=== PATIENT | female | born 1945 ===

== ENCOUNTER 2019-04-05 05:41 | Outpatient (CLI) | payer MEDICARE ==
[~2019-04-05] VITALS: Ht 157 cm; Wt 102.0 kg
[2019-04-05] MEDS ORDERED: ASPI-586 PO (10:15)
[2019-04-05] MEDS ORDERED: ALPR0.5T7 PO (10:15)
[2019-04-05] MEDS ORDERED: METF-399 PO (10:15)
[2019-04-05] MEDS ORDERED: [UNRECOGNIZED DRUG - CODE] PO (10:15)
[2019-04-05] MEDS ORDERED: TRIA1TAB3 PO (10:15)
[2019-04-05] MEDS ORDERED: LISI-552 PO (10:15)
[2019-04-05] MEDS ORDERED: PRAV40TA2 PO (10:15)
== END 2019-04-05 10:55 | disposition home or self-care (01) ==
LOC: PREOP 05:41
PROVIDERS: ATTEND Surgery
DX: Z01.818 Encounter for other preprocedural examination (principal)